=== PATIENT | female | born 1995 | race Hispanic/Latino ===

== ENCOUNTER 2017-08-02 21:25 | Inpatient (IN) | payer MEDICAID ==
[~2017-08-02] VITALS: Ht 149.9 cm; Wt 54.0 kg
[2017-08-02] MEDS ORDERED: LACTATED RINGERS 1000ML 1,000 ML IV ONE (21:53)
[2017-08-02 22:03] VITALS: BP 135/76
[2017-08-02] MEDS ORDERED: LACTATED RINGERS 1000ML 1,000 ML IV PRN (22:24)
[2017-08-02] MEDS ORDERED: NALOXONE HCL 0.4 MG/1 ML ML IV PRN (22:30)
[2017-08-02] MEDS ORDERED: LACTATED RINGERS 500 ML 500 ML IV PRN (22:30)
[2017-08-02] MEDS ORDERED: EPHEDRINE SULFATE 50 MG/ML AMPULE IVP PRN (22:30)
[2017-08-02] MEDS ORDERED: MEPERIDINE-PF 50 MG/ML SYG IVP PRN (22:30)
[2017-08-02] MEDS ORDERED: AMPICILLIN 2GM+NS 100ML 100 ML IV SCH (22:30)
[2017-08-02] MEDS ORDERED: PROMETHAZINE HCL 25 MG/ML 1ML AMPULE IM PRN (22:30)
[2017-08-02] MEDS ORDERED: PROMETHAZINE HCL 25 MG/ML 1ML AMPULE IM ONE (22:32)
[2017-08-02] MEDS ORDERED: AMPICILLIN 2GM+NS 100ML 100 ML IV ONE (22:32)
[2017-08-02] MEDS ORDERED: MEPERIDINE-PF 50 MG/ML SYG ONE (22:32)
[2017-08-02] MEDS ORDERED: OXYTOCIN 10 USP UNITS/ML ONE (22:34)
[2017-08-02 22:37] LABS: HEMATOCRIT 32.5 % (36-48); MEAN CORPUSCULAR HEMOGLOBIN 30.8 pg (27.0-33.0); MEAN CORPUSCULAR HGB CONC 33.7 g/dL (32.0-36.0); MEAN CORPUSCULAR VOLUME 91.5 fL (79-99); PLATELET COUNT (AUTO) 173 K/uL (130-400); RED BLOOD CELL COUNT(AUTO) 3.55 MIL/uL (4.00-5.50); WHITE BLOOD COUNT (AUTO) 13.4 K/uL (4.8-10.8)
[2017-08-02] MEDS ORDERED: LIDOCAINE HCL 1% 20 ML VIAL ONE (23:36)
[2017-08-03] VITALS (7 sets, daily range): BP systolic 94–136; BP diastolic 52–82
[2017-08-03] MEDS ORDERED: DIPH,PERTUSS(ACELL),TET VAC/PF 0.5 ML VIAL IM PRN (00:15)
[2017-08-03] MEDS ORDERED: LANOLIN 30GM OINTMENT TP PRN (00:15)
[2017-08-03] MEDS ORDERED: ACETAMINOPHEN-CODEINE 300/30MG TAB PO PRN (00:15)
[2017-08-03] MEDS ORDERED: WITCH HAZEL 1 PAD TP PRN (00:15)
[2017-08-03] MEDS ORDERED: OXYTOCIN-LR 20 UNITS/1000 ML 1,000 ML IV SCH (00:15)
[2017-08-03] MEDS ORDERED: IBUPROFEN 800 MG TAB ONE (01:02)
[2017-08-03] MEDS: OXYTOCIN-LR 20 UNITS/1000 ML 1,000 ML IV SCH ×2 (01:04→22:30)
[2017-08-03] MEDS: IBUPROFEN 800 MG TAB PO PRN ×3 (01:04→23:46)
[2017-08-03] MEDS: AMPICILLIN 1GM+NS 50ML 50 ML IV SCH ×4 (02:27→22:30)
[2017-08-03] MEDS ORDERED: PREN-94 PO (02:50)
[2017-08-03] MEDS: DOCUSATE SODIUM 100 MG CAP PO SCH ×2 (08:37→20:44)
[2017-08-04] MEDS: AMPICILLIN 1GM+NS 50ML 50 ML IV SCH ×2 (00:49→00:50)
[2017-08-04 03:44] VITALS: BP 112/77
[2017-08-04 07:23] LABS: HEPATITIS Bs ANTIGEN SCREEN P Negative (Negative)
[2017-08-04 08:05] VITALS: BP 115/71
[2017-08-04] MEDS: DOCUSATE SODIUM 100 MG CAP PO SCH (08:47)
[2017-08-04] MEDS: IBUPROFEN 800 MG TAB PO PRN (08:49)
[2017-08-04 11:54] VITALS: BP 124/70
[2017-08-04] MEDS ORDERED: MO8B PO (14:22)
== END 2017-08-04 15:50 | disposition home or self-care (01) | DRG 560 ==
LOC: EDH 21:25 → OBSVTOIN 21:26 → LDH 21:26 → WSH 08-03 01:55
PROC: 10E0XZZ Delivery of Products of Conception, External Approach (ICD-10-PCS; principal; 2017-08-02)
PROC: 3E0234Z Introduction of Serum, Toxoid and Vaccine into Muscle, Percutaneous Approach (ICD-10-PCS; 2017-08-02)
DX: O99.52 Diseases of the respiratory system complicating childbirth (principal); J45.909 Unspecified asthma, uncomplicated; O34.211 Maternal care for low transverse scar from previous cesarean delivery; Z37.0 Single live birth; Z3A.38 38 weeks gestation of pregnancy; Z23 Encounter for immunization
CPT/HCPCS: 36415; 85027; 86592; 86850; 86900; 86901; 87340; 87641; 90715; J0290; J2175; J2550; J2590; J7120